=== PATIENT | female | born 1965 | race Caucasian/White ===

== ENCOUNTER 2019-06-30 07:24 | Emergency (ER) | payer BC ==
[~2019-06-30] VITALS: Ht 170.2 cm; Wt 53.0 kg
[~2019-06-30 07:24] MED LIST: ACET500T98 ORAL; CHOL200056 ORAL; CIPR500T4 PO; DIPH1TAB PO; GABA300C16 ORAL; HYDR-3980 PO; IBUP-1544 ORAL; ONDA8TAB14 PO; PANT40TA3 PO; SULF1TAB31 PO
[2019-06-30 07:26] VITALS: RESP 18; Ht 170.2 cm; Wt 53.0 kg
[2019-06-30] MEDS ORDERED: SOD CHLORIDE 0.9% 1,000 ML IV STA (07:57)
[2019-06-30] MEDS ORDERED: HYDROmorphONE 1 MG/ML SYG IV STA ×2 (07:57→10:22)
[2019-06-30] MEDS ORDERED: ONDANSETRON 4 MG INJ IV STA ×2 (07:57→10:22)
[2019-06-30] MEDS ORDERED: IOHEXOL 300MG/ML 150 ML BTL ONE (09:10)
[2019-06-30] MEDS ORDERED: SOD CHLORIDE 0.9% 100 ML ONE (09:10)
[2019-06-30 10:56] VITALS: BP 126/78; PULSE 78
== END 2019-06-30 11:23 | disposition home or self-care (01) ==
LOC: E/R 07:24
DX: R10.12 Left upper quadrant pain (principal); F17.210 Nicotine dependence, cigarettes, uncomplicated; R19.7 Diarrhea, unspecified; R11.2 Nausea with vomiting, unspecified
CPT/HCPCS: 36415; 74177; 80053; 81003; 83690; 85025; 96374; 96375; 96376; 99285; J1170; J2405; J7030; Q9967; Z7610